=== PATIENT | male | born 1990 | race Caucasian/White ===

== ENCOUNTER 2016-11-07 22:07 | Emergency (ER) | payer SELFPAY ==
[2016-11-08 00:18] VITALS: BP 134/85
== END 2016-11-08 00:18 | disposition home or self-care (01) ==
LOC: ED 22:07
DX: S43.084A Other dislocation of right shoulder joint, initial encounter (principal); I10 Essential (primary) hypertension; E11.9 Type 2 diabetes mellitus without complications; X58.XXXA Exposure to other specified factors, initial encounter; Y93.89 Activity, other specified; Y99.8 Other external cause status; Y92.89 Other specified places as the place of occurrence of the external cause
CPT/HCPCS: J1170; J2405; J2704; Q0092

== ENCOUNTER 2017-08-06 16:29 | Emergency (ER) | payer SELFPAY ==
[2017-08-06 19:28] VITALS: BP 138/81
== END 2017-08-06 19:28 | disposition home or self-care (01) ==
LOC: ED 16:29
DX: H66.001 Acute suppurative otitis media without spontaneous rupture of ear drum, right ear (principal)
CPT/HCPCS: 82962